=== PATIENT | male | born 1945 | race American Indian/Alaskan Native ===

== ENCOUNTER 2021-04-20 08:24 | Emergency (ER) | payer MEDICAID, MEDICARE ==
[2021-04-20 08:52] VITALS: BP 147/85
--- NOTE | 2021-04-20 09:20 | Emergency Department Report ---
ED Lower Extremity HPI - General Chief Complaint: Extremity Problem,Nontraumatic Stated Complaint: PAIN IN RT LEG Source: patient Mode of arrival: Ambulatory Limitations: No Limitations - History of Present Illness Initial Comments: 75-year-old -Gabones[place] male presents to the emergency room for a couple days right thigh pain that is nontraumatic. Patient is followed by Dr. Naila Martinez Has not taken anything for pain. Patient denies any recent travels. Has a past medical history of hypertension and non-Hodgkin's lymphoma. Is currently taking amlodipine 5 mg vitamin D3 and metoprolol 25 mg. Patient denies any swelling to his leg denies any injury. Onset/Timin -: days(s) Injury: Thigh: Right - Related Data Allergies Allergy/AdvReac Type Severity Reaction Status Date / Time No Known Allergies Allergy Unverified 04/20/21 08:47 ED Review of Systems ROS: Stated complaint: PAIN IN RT LEG Other details as noted in HPI ED Past Medical Hx - Past Medical History Previous Medical History?: Yes Hx Hypertension: Yes - Surgical History Past Surgical History?: Yes Additional Surgical History: back and neck surgery ED Physical Exam - General Limitations: No Limitations General appearance: alert, in no apparent distress - Head Head exam: Present: atraumatic, normocephalic - Eye Eye exam: Present: normal appearance - ENT ENT exam: Present: normal external ear exam - Neck Neck exam: Present: normal inspection, full ROM - Respiratory Respiratory exam: Absent: respiratory distress, accessory muscle use - Extremities Exam Extremities exam: Present: normal inspection, full ROM, normal capillary refill. Absent: tenderness, pedal edema, joint swelling, calf tenderness - Back Exam Back exam: Present: normal inspection - Neurological Exam Neurological exam: Present: alert, oriented X3, normal gait - Psychiatric Psychiatric exam: Present: normal affect, normal mood - Skin Skin exam: Present: warm, dry, intact, normal color. Absent: rash ED Course Vital Signs 04/20/21 08:49 Temperature 97.7 F Pulse Rate 68 Respiratory 20 Rate Blood Pressure 147/85 O2 Sat by Pulse 98 Oximetry ED Lower Extremity MDM - Radiology Data Radiology results: report reviewed [facility] [address] [place] [address] Vascular Lab Report Signed Patient: FELICIANO NOLAN MR#: [id number] : 1945 Acct:[id number] Age/Sex: 75 / M ADM Date: 04/20/21 Loc: ED Attending Dr: Ordering Physician: JOHN WILDER Date of Service: 04/20/21 Procedure(s): VL venous duplex LE RT Accession Number(s): [id number] cc: JOHN WILDER DUPLEX DOPPLER LOWER EXTREMITY VEINS, RIGHT INDICATION: Traumatic thigh pain. TECHNIQUE: Duplex doppler imaging was performed through the veins of the right lower extremity using venous compression and other maneuvers. COMPARISON: No relevant prior imaging study available. FINDINGS: Right Common femoral vein: Negative. Right Superficial femoral vein: Negative. Right Popliteal vein: Negative. Right Calf veins: Negative. Additional findings: None. IMPRESSION: No sonographic evidence for DVT in the right lower extremity. Signer Name: Dane Duncan Jr, MD Signed: 04/20/2021 11:39 AM Workstation Name: [id number] Transcribed By: TTR Dictated By: DANE DUNCAN JR, MD Electronically Authenticated By: DANE DUNCAN JR, MD Signed Date/Time: 04/20/211138 DD/ 38 TD/TT: Print Cancel - Medical Decision Making 75-year-old -[place]ones[place] male presents to the emergency room for a couple days right thigh pain that is nontraumatic. Patient is followed by Dr. Naila Martinez Has not taken anything for pain. Patient denies any recent travels. Has a past medical history of hypertension and non-Hodgkin's lymphoma. Is currently taking amlodipine 5 mg vitamin D3 and metoprolol 25 mg. Patient denies any swelling to his leg denies any injury. Ultrasound of right thigh has been ordered since . Call ultrasound for Doppler they will be in at 11 AM. Critical care attestation.: If time is entered above; I have spent that time in minutes in the direct care of this critically ill patient, excluding procedure time. ED Disposition Clinical Impression: Right thigh pain Disposition: 01 HOME / SELF CARE / HOMELESS Is pt being admited?: No Does the pt Need Aspirin: No Condition: Stable Additional Instructions: Your ultrasound of your leg shows no DVT or clot. Tylenol or ibuprofen as ne eded for pain. Follow-up with your primary care provider. Referrals: PRIMARY CARE, [Primary Care Provider] - 3-5 Days NAILA MARTINEZ MD [Staff Physician] - 3-5 Days
--- NOTE | 2021-04-20 11:44 | Vascular Lab Report ---
DUPLEX DOPPLER LOWER EXTREMITY VEINS, RIGHT INDICATION: Traumatic thigh pain. TECHNIQUE: Duplex doppler imaging was performed through the veins of the right lower extremity using venous compression and other maneuvers. COMPARISON: No relevant prior imaging study available. FINDINGS: Right Common femoral vein: Negative. Right Superficial femoral vein: Negative. Right Popliteal vein: Negative. Right Calf veins: Negative. Additional findings: None. IMPRESSION: No sonographic evidence for DVT in the right lower extremity. Signer Name: Dane Duncan Jr, MD Signed: 04/20/2021 11:39 AM Workstation Name: [id number]
== END 2021-04-20 11:59 | disposition home or self-care (01) ==
LOC: ED 08:24
DX: M79.651 Pain in right thigh (principal); I10 Essential (primary) hypertension; Z98.890 Other specified postprocedural states
CPT/HCPCS: 99283

== ENCOUNTER 2021-04-24 09:48 | Emergency (ER) | payer MEDICARE ==
[2021-04-24 10:30] VITALS: BP 124/99
--- NOTE | 2021-04-24 11:27 | Emergency Department Report ---
ED Extremity Problem HPI - General Chief complaint: Extremity Problem,Nontraumatic Stated complaint: RT LEG PAIN Time Seen by Provider: 04/24/21 11:02 Source: patient Mode of arrival: Ambulatory Limitations: No Limitations - History of Present Illness Initial comments: Patient is a 75-year-old male who presents emergency room with complaints of right thigh pain that began 9 days ago. Patient was evaluated in the emergency department 4 days ago and had a Doppler ultrasound which showed no signs of DVT. He denies any pain in his calf. He states he typically has swelling in his ankles bilaterally secondary to his medications, he is on amlodipine and metoprolol. He denies any fall or injury. He denies any numbness or weakness. He is ambulatory. No allergies to medications. - Related Data Previous Rx's Medication Instructions Recorded Last Taken Type Meloxicam [Mobic] 7.5 mg PO QDAY #14 tablet 04/24/21 Unknown Rx Menthol/Camphor [[place] 1 applicatio TP BID #18 oint...g. 04/24/21 Unknown Rx Ointment] methOCARBAMOL [Robaxin TAB] 500 mg PO BID PRN #20 tab 04/24/21 Unknown Rx traMADoL [Ultram 50 MG tab] 50 mg PO Q6HR PRN #12 tablet 04/24/21 Unknown Rx Allergies Allergy/AdvReac Type Severity Reaction Status Date / Time No Known Allergies Allergy Unverified 04/20/21 08:47 ED Review of Systems ROS: Stated complaint: RT LEG PAIN Other details as noted in HPI Comment: All other systems reviewed and negative ED Past Medical Hx - Past Medical History Previous Medical History?: Yes Hx Hypertension: Yes - Surgical History Past Surgical History?: Yes Additional Surgical History: back and neck surgery - Medications Home Medications: Home Medications Medication Instructions Recorded Confirmed Last Taken Type Meloxicam [Mobic] 7.5 mg PO QDAY #14 tablet 04/24/21 Unknown Rx Menthol/Camphor [[place] 1 applicatio TP BID #18 oint...g. 04/24/21 Unknown Rx Ointment] methOCARBAMOL [Robaxin TAB] 500 mg PO BID PRN #20 tab 04/24/21 Unknown Rx traMADoL [Ultram 50 MG tab] 50 mg PO Q6HR PRN #12 tablet 08/17/21 Unknown Rx ED Physical Exam - General Limitations: No Limitations General appearance: alert, in no apparent distress - Head Head exam: Present: atraumatic, normocephalic - Eye Eye exam: Present: normal appearance - ENT ENT exam: Present: mucous membranes moist - Respiratory Respiratory exam: Absent: respiratory distress, accessory muscle use - Extremities Exam Extremities exam: Present: other (no ttp of the RLE, FROM of the RLE, mild edema to the ankles bilaterally, no calf ttp, neurovasculalry intact) - Neurological Exam Neurological exam: Present: alert, oriented X3 - Psychiatric Psychiatric exam: Present: normal affect, normal mood - Skin Skin exam: Present: warm, dry, other (there are a couple small erythematous papules to the right lateral leg, no surrounding erythema, no scaling, no blistering, no skin denuding) ED Course Vital Signs 04/24/21 10:29 Temperature 98.6 F Pulse Rate 70 Respiratory 18 Rate Blood Pressure 124/99 O2 Sat by Pulse 97 Oximetry ED Medical Decision Making - Medical Decision Making Patient is a 75-year-old male who presents emergency room with complaints of right thigh pain that began 9 days ago. Patient was evaluated in the emergency department 4 days ago and had a Doppler ultrasound which showed no signs of DVT. He denies any pain in his calf. He states he typically has swelling in his ankles bilaterally secondary to his medications, he is on amlodipine and metopr olol. He denies any fall or injury. He denies any numbness or weakness. He is ambulatory. No allergies to medications. Vitals are normal. On exam:no ttp of the RLE, FROM of the RLE, mild edema to the ankles bilaterally, no calf ttp, neurovasculalry intact, there are a couple small erythematous papules to the right lateral leg, no surrounding erythema, no scaling, no blistering, no skin denuding. Patient is presenting for nontraumatic leg pain that began over a week ago. He had recent Doppler ultrasound which was within normal limits. He has no signs of septic joint or cellulitis. No signs of acute gout flare. Dr. Bell Cohn, ER attending evaluated patient and believes could be secondary to arthritis versus bursitis, encouraged outpatient primary care and orthopedic follow-up. Given prescription for medications. Advised patient Please use medication as prescribed. Follow-up with your primary care doctor. Follow-up with orthopedic doctor. Return to emergency room for any new or worsening symptoms. Critical care attestation.: If time is entered above; I have spent that time in minutes in the direct care of this critically ill patient, excluding procedure time. ED Disposition Clinical Impression: Right thigh pain Disposition: 01 HOME / SELF CARE / HOMELESS Is pt being admited?: No Does the pt Need Aspirin: No Condition: Stable Additional Instructions: Please use medication as prescribed. Follow-up with your primary care doctor. Follow-up with orthopedic doctor. Return to emergency room for any new or worsening symptoms. Prescriptions: Meloxicam [Mobic] 7.5 mg PO QDAY #14 tablet methOCARBAMOL [Robaxin TAB] 500 mg PO BID PRN #20 tab PRN Reason: muscle spasm/pain Menthol/Camphor [[place] Ointment] 1 applicatio TP BID #18 oint...g. traMADoL [Ultram 50 MG tab] 50 mg PO Q6HR PRN #12 tablet PRN Reason: Pain , Severe (7-10) Referrals: OMERO ORTEGA MD [Primary Care Provider] - 2-3 Days ALICE SANCHEZ MD [Staff Physician] - 2-3 Days Time of Disposition: 11:26 Print Language: BULGARIAN
== END 2021-04-24 11:39 | disposition home or self-care (01) ==
LOC: ED 09:48
DX: M79.651 Pain in right thigh (principal); I10 Essential (primary) hypertension; Z98.890 Other specified postprocedural states
CPT/HCPCS: 99281